=== PATIENT | male | born 1985 | race African-American/Black ===

== ENCOUNTER 2017-06-07 14:17 | Emergency (ER) | payer SELFPAY ==
[~2017-06-07] VITALS: Ht 180.3 cm; Wt 72.0 kg
[2017-06-07 14:18] VITALS: BP 130/97; PULSE 75; RESP 16; TEMP 99.7; O2SAT 99
[2017-06-07] MEDS ORDERED: NAPROXEN 500 MG TAB PO ONE (15:15)
[2017-06-07] MEDS ORDERED: NAPR500T2 PO (15:22)
[2017-06-07] MEDS ORDERED: CYCL10TA PO (15:22)
--- NOTE | 2017-06-07 15:22 | PD ---
HPI Chief Complaint: Back/ Neck Pain or Injury Time Seen by Provider: 15:12 Travel History International Travel<30 days: No Contact w/Intl Traveler<30days: No Traveled to known affect area: No History of Present Illness HPI 31 year-old woman, presents of low back pain. History of low back problems in the past. 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 Pains ongoing for the last couple weeks. No numbness tingling. No radiation. No neurologic symptoms. History Past Medical History Medical History: Denies Significant Hx Tetanus Vaccination: < 5 Years Past Surgical History Surgical History: No Previous Surgery Social History Alcohol Use: Yes (HEAVY LIQUOR DAILY) Tobacco Use: Yes (2-3 CIGARETTES/ DAY) Allergies-Medications (Allergen,Severity, Reaction): Coded Allergies: No Known Allergies (Unverified Adverse Reaction, Unknown, 06/07/17) Reported Meds & Prescriptions Reported Meds & Active Scripts Active No Active Prescriptions or Reported Medications Review of Systems Except as stated in HPI: all other systems reviewed are Neg Physical Exam Narrative GENERAL: Well-developed, well-nourished, no acute distress. SKIN: Warm and dry. CARDIOVASCULAR: Warm and well perfused. RESPIRATORY: Normal rate and effort. MUSCULOSKELETAL: Normal appearance of back and bilateral lower extremities. No ecchymosis, swelling, bruising. No rashes. Normal muscle bulk and tone. NEUROLOGICAL: Strength full 5/5 and equal in bilateral lower extremities in proximal and distal muscle groups. 5/5 in large toe flexion and extension. Sensation is intact to light touch throughout. PSYCHIATRIC: Appropriate mood and affect; insight and judgment normal. Data Data Last Documented VS Vital Signs Date Time Temp Pulse Resp B/P (MAP) Pulse Ox O2 Delivery O2 Flow Rate FiO2 06/07/17 14:18 99.7 75 16 130/97 (108) 99 Room Air Orders Orders Naproxen (Naprosyn) (06/07/17 15:15) [facility] Medical Decision Making Medical Screen Exam Complete: Yes Emergency Medical Condition: Yes Differential Diagnosis Back strain or sprain, contusion, herniated disc, other Narrative Course Medical decision-making 31-year-old man presents emergency room complaining of low back pain, worsen baseline. Exams unremarkable. Recommended supportive treatment. Diagnosis Primary Impression: Back pain Additional Instructions: Take Naprosyn as prescribed. Use Flexeril sparingly as needed for back pain. Follow-up with her primary doctor in next 2-4 days. Return to the emergency department for any new or worsening symptoms. Med/Other Pt SpecificInfo: Prescription(s) given Scripts Cyclobenzaprine (Flexeril) 10 Mg Tab 10 MG PO TID Y for MUSCLE SPASM, #15 TAB 0 Refills Prov: Finn Perea MD 06/07/17 Naproxen (Naproxen) 500 Mg Tab 500 MG PO BID, #14 TAB 0 Refills Prov: Finn Perea MD 06/07/17 Disposition: 01 DISCHARGE HOME Condition: Stable Finn Perea MD Jun 07, 2017 15:22
== END 2017-06-07 15:37 | disposition home or self-care (01) ==
LOC: NEPK 14:17
DX: M54.5 Low back pain (principal); F17.210 Nicotine dependence, cigarettes, uncomplicated
CPT/HCPCS: 99283

== ENCOUNTER 2017-08-08 15:23 | Emergency (ER) | payer SELFPAY ==
[~2017-08-08 15:23] MED LIST: CYCL10TA PO; NAPR500T2 PO
[2017-08-08 15:26] VITALS: BP 114/73; PULSE 64; RESP 14; TEMP 98.4; O2SAT 97
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
[2017-08-08] MEDS ORDERED: MUPI2%T TOPICAL (16:57)
[2017-08-08] MEDS ORDERED: CEPH-460 PO (16:57)
[2017-08-08] MEDS ORDERED: BACT800T5 PO (16:57)
== END 2017-08-08 17:12 | disposition home or self-care (01) ==
LOC: NEPK 15:23
DX: L03.113 Cellulitis of right upper limb (principal); F17.210 Nicotine dependence, cigarettes, uncomplicated; F12.90 Cannabis use, unspecified, uncomplicated
CPT/HCPCS: 99284

== ENCOUNTER 2017-11-17 06:50 | Emergency (ER) | payer MEDICAID ==
[~2017-11-17] VITALS: Ht 182.9 cm; Wt 64.0 kg
[~2017-11-17 06:50] MED LIST changes: +BACT800T5 PO; +CEPH-460 PO; +MUPI2%T TOPICAL; +OXYC1TAB36 PO
[2017-11-17 07:01] VITALS: BP 112/72; PULSE 91; RESP 17; TEMP 98.5; O2SAT 100
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
== END 2017-11-17 07:28 | disposition left against medical advice (07) ==
LOC: EDUNIT# 06:50 → NEPD 06:50
DX: Z00.00 Encounter for general adult medical examination without abnormal findings (principal)
CPT/HCPCS: 99281

== ENCOUNTER 2017-11-19 10:37 | Emergency (ER) | payer MEDICAID ==
[~2017-11-19] VITALS: Ht 172.7 cm; Wt 68.0 kg
[2017-11-19 10:52] VITALS: BP 112/62; PULSE 93; RESP 18; TEMP 98.3; O2SAT 97
[2017-11-19] MEDS ORDERED: SODIUM CHLORIDE 0.9% FLUSH 10 ML FLUSH IVF PRN (11:15)
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
[2017-11-19 11:26] VITALS: BP 116/65; PULSE 88; RESP 17; O2SAT 99
[2017-11-19 11:38] LABS: AUTOMATED NEUTROPHIL # 6.6 TH/MM3 (1.8-7.7); BASOPHIL % 0.3 % (0.0-2.0); EOSINOPHIL # 0.1 TH/MM3 (0-0.4); EOSINOPHIL % 0.7 % (0.0-4.0); HEMATOCRIT 47.3 % (39.0-51.0); HEMOGLOBIN 15.5 GM/DL (13.0-17.0); LYMPH % 16.2 % (9.0-44.0); LYMPHOCYTE # 1.4 TH/MM3 (1.0-4.8); MEAN CELL VOLUME 84.2 FL (80.0-100.0); MEAN CORPUSCULAR HEMOGLOBIN 27.6 PG (27.0-34.0); MEAN CORPUSCULAR HGB CONC 32.8 % (32.0-36.0); MONO % 7.5 % (0.0-8.0); MONOCYTE # 0.7 TH/MM3 (0-0.9); NEUT % 75.3 % (16.0-70.0); PLATELET COUNT 442 TH/MM3 (150-450); RED BLOOD COUNT 5.62 MIL/MM3 (4.50-5.90); RED CELL DISTRIBUTION WIDTH 15.3 % (11.6-17.2); WHITE BLOOD COUNT 8.8 TH/MM3 (4.0-11.0)
[2017-11-19 11:52] LABS: BACTERIA, URINE FEW /hpf; BILIRUBIN, URINE NEG (NEG); BLOOD, URINE NEG (NEG); GLUCOSE,URINE NEG (NEG); KETONE, URINE NEG (NEG); MUCUS URINE MANY /lpf (OCC); NITRITE,URINE NEG (NEG); PH, URINE 5.5 (5.0-8.5); SQUAMOUS EPITHELIAL CELL URINE 3 /hpf (0-5); URINE COLOR YELLOW (YELLW/STRAW); URINE LEUKOCYTE ESTERASE NEG (NEG)
[2017-11-19 11:56] LABS: BICARBONATE 23.5 MEQ/L (21.0-32.0); CALCIUM 9.1 MG/DL (8.5-10.1); CREATININE 0.93 MG/DL (0.60-1.30)
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
[2017-11-19 13:45] VITALS: BP 113/68
== END 2017-11-19 13:45 | disposition home or self-care (01) ==
LOC: NEPE 10:37
DX: N43.3 Hydrocele, unspecified (principal); S31.139D Puncture wound of abdominal wall without foreign body, unspecified quadrant without penetration into peritoneal cavity, subsequent encounter; W34.00XD Accidental discharge from unspecified firearms or gun, subsequent encounter; F12.90 Cannabis use, unspecified, uncomplicated; F16.90 Hallucinogen use, unspecified, uncomplicated; N50.812 Left testicular pain
CPT/HCPCS: 76870; 80048; 81001; 85025; 93975